=== PATIENT | male | born 1995 | race African-American/Black ===

== ENCOUNTER 2017-07-03 10:38 | Emergency (ER) | payer OTHER ==
[~2017-07-03] VITALS: Ht 190.5 cm; Wt 82.0 kg
[~2017-07-03 10:38] MED LIST: CLIN150C14 PO; NAPR500 PO
[2017-07-03 10:39] VITALS: BP 130/70; PULSE 63; RESP 16; TEMP 98.3; O2SAT 99
[2017-07-03] MEDS ORDERED: IBUPROFEN 600 MG TAB PO ONE (11:00)
[2017-07-03] MEDS ORDERED: CLINDAMYCIN 150 MG CAP PO ONE (11:00)
--- NOTE | 2017-07-03 11:06 | PD ---
HPI Chief Complaint: Oral / Dental Pain or Problem Time Seen by Provider: 10:59 Travel History International Travel<30 days: No Contact w/Intl Traveler<30days: No Traveled to known affect area: No History of Present Illness HPI Patient is a 21-year-old male who presents to emergency room with complaints of left lower dental pain. Patient reports that he has been on antibiotics for the past 2 months and has follow-up with a dentist, he was told that he would need his tooth removed. Patient reports that this procedure would cost too much money and his insurance does not cover it. Reports that he currently is on a course of amoxicillin. Reports that the amoxicillin is not helping him anymore, patient requesting an xray of the tooth at this time. Denies fever/ chills. Denies trismus. PFSH Past Medical History Hx Anticoagulant Therapy: No ADHD: No Blood Disorders: No Cancer: No Cardiovascular Problems: No Chemotherapy: No Cerebrovascular Accident: No Diabetes: No Diminished Hearing: No Gastrointestinal Disorders: Yes (CONSTIPATION) Headaches: Yes Psychiatric: Yes Respiratory: No Immunizations Current: Yes Migraines: Yes Seizures: No Thyroid Disease: No Ulcer: No Past Surgical History Abdominal Surgery: Yes (UMBILICAL HERNIA REPAIR) Appendectomy: No Cholecystectomy: No Hysterectomy: No Other Surgery: No Social History Alcohol Use: No Tobacco Use: Yes Substance Use: No Allergies-Medications (Allergen,Severity, Reaction): Coded Allergies: tramadol (Unverified Adverse Reaction, Intermediate, RASH/VOMITING, ) Reported Meds & Prescriptions Reported Meds & Active Scripts Active Naprosyn (Naproxen) 500 Mg Tab 500 Mg PO Q12HR PRN Clindamycin (Clindamycin HCl) 150 Mg Cap 2 Tab PO Q6H 10 Days Review of Systems General / Constitutional: No: Fever, Chills Eyes: No: Visual changes HENT: Positive: Dental Difficulties, No: Headaches Cardiovascular: No: Chest Pain or Discomfort Respiratory: No: Shortness of Breath Gastrointestinal: No: Abdominal Pain Genitourinary: No: Dysuria Musculoskeletal: No: Pain Skin: No Rash Neurologic: No: Weakness Psychiatric: No: Depression Endocrine: No: Polydipsia Hematologic/Lymphatic: No: Easy Bruising Physical Exam Narrative GENERAL: Well-nourished, well-developed patient. SKIN: Focused skin assessment warm/dry. HEAD: Normocephalic. EYES: No scleral icterus. No injection or drainage. MOUTH: Patient with poor dentition patient with no trismus, patient with no jaw swelling or erythema NECK: Supple, trachea midline. No JVD or lymphadenopathy. CARDIOVASCULAR: Regular rate and rhythm without murmurs, gallops, or rubs. RESPIRATORY: Breath sounds equal bilaterally. No accessory muscle use. GASTROINTESTINAL: Abdomen soft, non-tender, nondistended. MUSCULOSKELETAL: No cyanosis, or edema. BACK: Nontender without obvious deformity. No CVA tenderness. Data Data Last Documented VS Vital Signs Date Time Temp Pulse Resp B/P (MAP) Pulse Ox O2 Delivery O2 Flow Rate FiO2 07/03/17 10:39 98.3 63 16 130/70 (90) 99 Orders Orders Ibuprofen (Motrin) (07/03/17 11:00) Clindamycin (Cleocin) (07/03/17 11:00) [facility] Medical Decision Making Medical Screen Exam Complete: Yes Emergency Medical Condition: Yes Medical Record Reviewed: Yes Interpretation(s) Vital Signs Date Time Temp Pulse Resp B/P (MAP) Pulse Ox O2 Delivery O2 Flow Rate FiO2 07/03/17 10:39 98.3 63 16 130/70 (90) 99 Differential Diagnosis Dental infection, dental caries Narrative Course 21-year-old male who presents to emergency room with complaints of dental pain. Patient has been having dental pain which is ongoing for the past 1-2 months, he cannot afford to have this tooth removed and is currently on amoxicillin which patient reports is not working. Patient with continued pain to his left lower molar. Discussed with patient need to change his antibiotics from amoxicillin to clindamycin. Discussed need to take probiotics or eat yogurt with his antibiotics prevent C. difficile. Patient understands that I cannot obtain an x -ray of his tooth at this time and that he will need to follow up with a dentist for ultimate care of his tooth as I cannot remove this tooth for him in the ER. Dental clinic referrals are given to patient. He will return to the emergency room as needed or if symptoms worsen or progress Diagnosis Primary Impression: Pain, dental Patient Instructions: General Instructions Additional Instructions: Please provide patient with a copy of their lab work and studies at discharge* * Please follow up with your dentist as soon as possible Return to the ER if symptoms worsen or progress Return to the ER as needed Please take all antibiotics as prescribed Please take yogurt with your antibiotics Med/Other Pt SpecificInfo: Prescription(s) given Scripts Clindamycin (Clindamycin) 300 Mg Cap 300 MG PO Q6H for Infection, #10 CAP 0 Refills Prov: Kcai Gill DO 07/03/17 Disposition: 01 DISCHARGE HOME Condition: Stable Kaci Gill DO Jul 03, 2017 11:06
[2017-07-03] MEDS ORDERED: CLIN300C5 PO (11:10)
== END 2017-07-03 11:18 | disposition home or self-care (01) ==
LOC: NEPD 10:38
DX: K08.89 Other specified disorders of teeth and supporting structures (principal); Z72.0 Tobacco use
CPT/HCPCS: 99283